=== PATIENT | male | born 1970 | race Asian ===

== ENCOUNTER 2017-07-08 11:44 | Emergency (ER) | payer MEDICAID ==
[~2017-07-08] VITALS: Ht 167.6 cm; Wt 88.5 kg
[~2017-07-08 11:44] MED LIST: ALPR1TAB2 PO; ASPI-664 PO; MAG355OR14 PO; ONDA8TAB14 PO; TRAM50TA2 PO
[2017-07-08 11:52] VITALS: Ht 167.6 cm; Wt 88.5 kg
--- NOTE | 2017-07-08 12:48 | EN ---
Date/Time of Note Date/Time of Note DATE: 07/08/17 TIME: 12:46 ER Progress Note Rapid initial medical assessment was started in ER 2, when the patient complained of headache and neck pain and then stated he also began experiencing chest pain on exertion while walking to the bathroom in the emergency department. With past medical history of hypertension and elevated cholesterol , I felt the patient was no longer a candidate for further workup in emergency department 2. sample wrapper was notified and a transfer to emergency department 1 was initiated. JOSÉ LUIS SHIRLEY PA-C Jul 08, 2017 12:48
[2017-07-08] MEDS ORDERED: SOD CHLORIDE 0.9% 1,000 ML IV STA (12:57)
[2017-07-08] MEDS ORDERED: METOCLOPRAMIDE 10 MG INJ IV STA (12:57)
[2017-07-08] MEDS ORDERED: DIPHENHYDRAMINE 50 MG INJ IV ONE (13:00)
--- NOTE | 2017-07-08 13:17 | ERA ---
ER Documentation Chief Complaint Date/Time DATE: 07/08/17 TIME: 13:00 Chief Complaint HEAD & NECK PAIN SINCE LAST NIGHT, DENIES INJURY HPI This is a 47-year-old male with a past medical history of hypertension, anxiety , cholelithiasis with biliary colic in the past previously on tramadol and Zofran, headaches who is presenting with feelings of anxiousness, palpitations, chest discomfort and right sided neck pain and occipital headache since last night. The patient reports that he gets these symptoms regularly. He is very stressed about his family's finances and work. 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 He states that the headache is the same as previous episodes. It is not the worst headache of his life. And for him to come in today was that he felt his blood pressure was elevated when he checked it this morning. His systolic blood pressure was at 160 on his monitor at home. The patient denies feeling sick recently. The patient denies fever or chills. The patient has had no vision changes. He does not endorse photophobia or phonophobia or blurry or double vision. The patient denies lightheadedness or dizziness. The patient has had no shortness of breath or trouble breathing. The patient denies abdominal pain or changes to bowel movements or urination. The patient has had no focal deficits. The patient has had no weakness or numbness or tingling to the face or extremities. The patient denies a history of hyperlipidemia. The patient has had no family history of sudden cardiac . There is no history of cerebral aneurysm. There is a family history of heart attack and stroke in secondary family members. ROS All systems reviewed and are negative except as per history of present illness. Medications Home Meds Active Scripts Ondansetron (Ondansetron Odt) 8 Mg Tab.rapdis, 8 MG PO Q6H Y for NAUSEA AND/OR VOMITING, #10 TAB Prov:JOSE CHANG MD 09/24/16 Tramadol HCl (Tramadol HCl) 50 Mg Tablet, 50 MG PO Q4 Y for PAIN, #20 TAB Prov:JOSE CHANG MD 09/24/16 Mag Hydrox/Al Hydrox/Simeth (Maalox Advanced Suspension) 355 Ml Oral.susp, 2 TSP PO TID for PAIN, #24 OZ Prov:MAGGIE BURROWS MD 09/06/16 Alprazolam* (Xanax*) 1 Mg Tab, 1 MG PO TID for ANXIETY, #15 TAB Prov:MAGGIE BURROWS MD 09/06/16 Reported Medications Aspirin (Low Dose Aspirin) 81 Mg Tablet.dr, 81 MG PO DAILY, #30 TAB 09/06/16 Allergies Allergies: Coded Allergies: No Known Allergy (Unverified , 07/08/17) PMhx/Soc History of Surgery: Yes (Left hip, left knee 1995; kidney stones) Anesthesia Reaction: No Hx Neurological Disorder: No Hx Respiratory Disorders: No Hx Cardiac Disorders: Yes (htn) Hx Psychiatric Problems: No Hx Miscellaneous Medical Probl: Yes (gallstones) Hx Alcohol Use: No Hx Substance Use: No Hx Tobacco Use: No Smoking Status: Never smoker FmHx Family History: coronary disease Physical Exam Vitals Vital Signs Date Time Temp Pulse Resp B/P Pulse Ox O2 Delivery O2 Flow Rate FiO2 07/08/17 11:52 98.6 70 18 144/90 99 Physical Exam Const: No apparent distress, well-developed, well-nourished Head: Atraumatic Eyes: Normal Conjunctiva. Extraocular movements intact. ENT: Normal External Ears, Nose and Mouth. Neck: Full range of motion. ~ No meningismus. Resp: Clear to auscultation bilaterally Cardio: Regular rate and rhythm, no murmurs Abd: Soft, non tender, non distended. Normal bowel sounds Skin: No petechiae or rashes Back: No midline or flank tenderness Ext: No cyanosis, or edema Neur: Awake and alert, oriented 4. Cranial nerves intact. No facial droop. Normal strength and sensation in all extremities. Coordination with finger to nose normal. Psych: Normal Affect, Anxious appearing Result Diagram: 07/08/17 1309 07/08/17 1309 Results 24 hrs Laboratory Tests Test 07/08/17 13:09 White Blood Count 6.610^3/ul Red Blood Count 5.0710^6/ul Hemoglobin 16.0g/dl Hematocrit 44.6% Mean Corpuscular Volume 88.0fl Mean Corpuscular Hemoglobin 31.6pg Mean Corpuscular Hemoglobin Concent 35.9g/dl Red Cell Distribution Width 12.2% Platelet Count 46357^3/UL Mean Platelet Volume 9.0fl Neutrophils % 53.7% Lymphocytes % 32.2% Monocytes % 10.9% Eosinophils % 2.7% Basophils % 0.2% Nucleated Red Blood Cells % 0.0/100WBC Neutrophils # 3.610^3/ul Lymphocytes # 2.110^3/ul Monocytes # 0.710^3/ul Eosinophils # 0.210^3/ul Basophils # 0.010^3/ul Nucleated Red Blood Cells # 0.010^3/ul Sodium Level 140mmol/L Potassium Level 4.0mmol/L Chloride Level 106mmol/L Carbon Dioxide Level 28mmol/L Anion Gap 10 Blood Urea Nitrogen 10mg/dl Creatinine 0.79mg/dl Glucose Level 103mg/dl Calcium Level 8.6mg/dl Troponin I < 0.012ng/ml Current Medications Medications (Trade) Dose Ordered Sig/Aries Route PRN Reason Start Time Stop Time Status Last Admin Dose Admin Sodium Chloride (NS) 1,000 ml @ 1,000 mls/hr Q1H STAT IV 07/08/17 12:57 07/08/17 13:56 DC 07/08/17 13:15 Metoclopramide HCl (Reglan) 10 mg ONCE STAT IV 07/08/17 12:57 07/08/17 13:00 DC 07/08/17 13:14 Diphenhydramine HCl (Benadryl) 25 mg ONCE ONCE IV 07/08/17 13:00 07/08/17 13:01 DC 07/08/17 13:14 Ketorolac Tromethamine (Toradol) 30 mg ONCE STAT IV 07/08/17 14:06 07/08/17 14:07 DC Procedures/MDM MDM Patient's presentation warrants further investigation. I have high suspicion for a tension headache given the patient's overall presentation. However, given the patient's constitution of symptoms, I do need to rule out other more emergent etiologies. I will obtain a CT of the head to rule out any intracranial pathology. I will also perform a cardiac workup. I will give the patient IV fluids, Reglan and Benadryl initially. If the patient's CAT scan is negative, I will add on Toradol as well. LABS The patient's blood work was obtained and reviewed. The patient seemed shows no leukocytosis or left shift. The patient is afebrile, and I do not suspect a systemic infection. The patient is not anemic today. The patient's platelet count is unremarkable. The patient's CMP shows no signs of metabolic or electrolyte abnormality. The patient has normal renal function testing. The troponin is negative. EKG EKG read by me: Rate/Rhythm: Regular rate and rhythm at a rate of 67 Intervals: Normal [place]: Normal Impression: No evidence of ischemia or arrhythmia IMAGING CXR FINDINGS: The lungs are clear. The heart size is normal. There is no pleural effusion. There is no pneumothorax. IMPRESSION: Normal chest radiograph. No change from 09/06/2016. Electronically viewed and signed by .Jose Thomas MD, on 07/08/2017 13:21 CT HEAD FINDINGS: The ventricles are symmetric and normal in size. There is no mass effect or midline shift. There is no abnormal intra-axial or extra-axial fluid collection. There is no evidence of intracranial hemorrhage. There are no abnormal areas of increased or decreased attenuation in the brain parenchyma. The bony calvarium is intact. The orbital soft tissue contents are unremarkable. Paranasal sinuses appear clear IMPRESSION: No mass effect or acute intracranial bleed. Unremarkable CT brain. Electronically viewed and signed by .Wilfrido Ulrich MD, on 07/08/2017 13:51 TREATMENT/DISPOSITION The patient's workup is reassuring. I have low suspicion for a cardiac etiology in this patient. I would place his heart score at 2 for age and risk factors. This may be followed up on by his primary care physician in 1-3 days. With respect to his headache, the patient's CT scan was negative. The patient did receive IV fluids, Toradol, Reglan and Benadryl which resolved his headache. The patient is a headache is pretty standard for him. I do not suspect cerebral aneurysm. There is no evidence of subarachnoid hemorrhage on CT scan. I do not feel that an LP is warranted at this time. There is no other evidence of mass or ischemia or bleed on the CAT scan. The patient's asked to have a private conversation with me and endorsed significant stress from work with very long hours and very little sleep. I do suspect a tension headache. At this time, the patient stable for discharge. He needs to follow-up with his physician in 1-2 days for reevaluation. He will be given precautions with which to return to the emergency department. Departure Diagnosis: Primary Impression: Headache Qualified Code: G44.209 - Acute non intractable tension-type headache Additional Impressions: Chest pain of uncertain etiology Anxiety Stress at work Condition: DONNIE Deras MD Jul 08, 2017 13:11
[2017-07-08 13:22] LABS: BASOPHILS % 0.2 % (0.0-2.0); EOSINOPHILS # 0.2 10^3/ul (0.0-0.5); EOSINOPHILS % 2.7 % (0.0-7.0); HEMATOCRIT 44.6 % (42.0-52.0); LYMPHOCYTES # 2.1 10^3/ul (0.8-2.9); LYMPHOCYTES % 32.2 % (15.0-51.0); MEAN CORPUSCULAR HEMOGLOBIN 31.6 pg (29.0-33.0); MEAN CORPUSCULAR HGB CONC 35.9 g/dl (32.0-37.0); MONOCYTE # 0.7 10^3/ul (0.3-0.9); MONOCYTES % 10.9 % (0.0-11.0); NEUTROPHIL # 3.6 10^3/ul (1.6-7.5); NEUTROPHILS % 53.7 % (39.0-77.0); PLATELET COUNT 194 10^3/UL (140-415); RED BLOOD COUNT 5.07 10^6/ul (4.70-6.10); RED CELL DISTRIBUTION WIDTH 12.2 % (11.5-14.5); WHITE BLOOD COUNT 6.6 10^3/ul (4.8-10.8)
--- NOTE | 2017-07-08 13:22 | RADRPT ---
PROCEDURE: XR Chest. CLINICAL INDICATION: Chest pain. TECHNIQUE: Single frontal view. COMPARISON: 09/06/2016. FINDINGS: The lungs are clear. The heart size is normal. There is no pleural effusion. There is no pneumothorax. IMPRESSION: 1. Normal chest radiograph. 2. No change from 09/06/2016. RPTAT: QQ .Elan Thomas MD, MD Date Time Electronically viewed and signed by .Elan Thomas MD, MD on 07/08/2017 13:21 .R/
[2017-07-08 13:45] LABS: ANION GAP 10 (8-16); BLOOD UREA NITROGEN 10 mg/dl (7-20); CALCIUM 8.6 mg/dl (8.4-10.2); CARBON DIOXIDE 28 mmol/L (21-31); CHLORIDE 106 mmol/L (97-110); CREATININE 0.79 mg/dl (0.61-1.24); GLUCOSE 103 mg/dl (70-220); SODIUM 140 mmol/L (135-144)
--- NOTE | 2017-07-08 13:51 | RADRPT ---
PROCEDURE: CT Head without contrast. CLINICAL INDICATION: headache TECHNIQUE: Continuous axial CT images were obtained from the base of skull to the vertex. No cont rast was administered. The calculated radiation dose measures 720 mGy centimeters. The CTDI measures 43 mGy One or more of the following dose reduction techniques were used: Automated exposure control. Adjustment of the mA and/or kV according to patient size. Use of iterative reconstruction technique. COMPARISON: No prior studies are available for comparison. FINDINGS: The ventricles are symmetric and normal in size. There is no mass effect or midline shift. There i s no abnormal intra-axial or extra-axial fluid collection. There is no evidence of intracranial hem orrhage. There are no abnormal areas of increased or decreased attenuation in the brain parenchyma. The bony calvarium is intact. The orbital soft tissue contents are unremarkable. Paranasal sinuses appear clear IMPRESSION: No mass effect or acute intracranial bleed. Unremarkable CT brain. RPTAT: HBST .Wilfrido Ulrich MD, MD Date Time Electronically viewed and signed by .Wilfrido Ulrich MD, on 07/08/2017 13:51 .T/
[2017-07-08 14:03] LABS: TROPONIN-I < 0.012 ng/ml (0.00-0.12)
[2017-07-08] MEDS ORDERED: KETOROLAC 30 MG INJ IV STA (14:06)
[2017-07-08 15:27] VITALS: BP 120/92; PULSE 63; RESP 17; TEMP 98.2
== END 2017-07-08 15:28 | disposition home or self-care (01) ==
LOC: FTE 11:44 → E/R 15:28
DX: G44.209 Tension-type headache, unspecified, not intractable (principal); R07.9 Chest pain, unspecified; F41.9 Anxiety disorder, unspecified; F43.0 Acute stress reaction; I10 Essential (primary) hypertension; Z79.82 Long term (current) use of aspirin
CPT/HCPCS: 36415; 70450; 71010; 80048; 84484; 85025; 93005; 96374; 96375; J1200; J1885; J2765; J7030; Z7502

== ENCOUNTER 2017-12-17 08:14 | Emergency (ER) | END 2017-12-17 11:21 | disposition home or self-care (01) ==

== ENCOUNTER 2018-01-29 21:54 | Emergency (ER) | END 2018-01-30 04:28 | disposition left against medical advice (07) ==

== ENCOUNTER → 2018-05-11 | Emergency (ER) | END | disposition home or self-care (01) ==